=== PATIENT | male | born 1935 | race Caucasian/White ===

== ENCOUNTER 2016-08-23 12:39 | Day surgery (SDC) | payer MEDICARE ==
[~2016-08-23] VITALS: Ht 172.7 cm; Wt 85.0 kg
[~2016-08-23 12:39] MED LIST: 0.9% Sodium Chloride 1,000 ML IV PRN; ALLO300T2 PO; AMLO2.5T PO; LOVA40TA PO; Sodium Chloride LOK Flush 10 mL Syringe IV PRN; fentaNYL-PF 50 mCg/mL 2 mL Inj IVPUSH PRN
[2016-08-23 14:46] VITALS: BP 151/73; PULSE 51; RESP 14; O2SAT 98
--- NOTE | 2016-08-23 16:03 | PCM.ENDCOL ---
Colonoscopy Date of Service: Aug 23, 2016 Physician Clarke Starks MD Pre Procedure Diagnosis: History of polyp Post Procedure Dx & Findings: Polyp hemorrhoids Procedure Colonoscopy PROCEDURE IN DETAIL: Prep adequate After unremarkable rectal examination the Olympus video colonoscope was inserted patient's anal canal and was advanced to cecum. Landmarks were identified including the ileocecal valve and appendiceal orifice. Scope was withdrawn systematically. Visualized colonic mucosa showed healthy shiny mucosa with normal healthy-appearing vasculature. In the cecum, there was a 1 cm polyp which was removed completely using a hot snare. Visible vessel noted. One hemostatic clip deployed successfully. In te ascending colon, 1.5 cm polyp noted. This was removed completely using a hot snare. Also in the ascending colon there were two 1mm polyps which were all removed completely using cold forcep. In the transverse colon there were 3 mm polyp and 5 mm polyp. These were removed completely using cold snare. Also in the transverse colon, there were two 1mm polyps which were all removed completely using cold forceps. In the rectum retroflexion was done which showed hemorrhoids. Anal canal was inspected carefully on the way out and hemorrhoids noted. Impression Polyps 8 status post complete removal Hemorrhoids Recommendation Repeat colonoscopy 3 years Presedation Assessment Risks and Benefits Informed consent was obtained from the patient after all risks and benefits including but not limited to drug reaction, infection, pain, bleeding, perforation, as well as alternatives were discussed. Patient monitoring Continuous pulse oximetry, cardiac monitoring, blood pressure monitoring, IV access, and oxygen at 2L per nasal cannula. Periprocedural Fentanyl: Fentanyl 50mcg Incrementally Midazolam: Midazolam 2mg Incrementally Complications There were no periprocedural complications identified. Post Procedure Plan Post Procedure Recommendations 1. Restrict activities today. 2. Resume normal activities in the morning. 3. Resume medications. 4. Patient informed of normal post procedure side effects as bloating, drowsiness, blood streaking in the stool. 5. average risk CRCS. If colon polyps come back as: -Hyperplastic- can repeat colonoscopy in 10 years -Tubular adenoma- repeat colonoscopy in 5 years -Tubulovillous/villous adenoma- repeat colonoscopy in 3 years -If any dysplasia- return to clinic as soon as possible 6. Please don't hesitate to call me with any questions. Clarke Starks MD Aug 23, 2016 16:03 Clarke Starks MD Aug 23, 2016 16:03
[2016-08-23 16:07] VITALS: BP 156/69; PULSE 55; O2SAT 96
[2016-08-23 16:19] VITALS: BP 166/72; PULSE 52; RESP 16; O2SAT 96
--- NOTE | 2016-08-26 08:59 | PATH ---
SURGICAL PATHOLOGY Attending Physician:Clarke Starks M.D. CASE STATUS: Signed Out PATIENT NAME: LOURDES PLASCENCIA PID: [id number] : 1935 DATE COLLECTED:08/23/2016 00:00 SPECIMEN: 1: Colon, Biopsy 2: Colon, Biopsy 3: Colon, Biopsy CLINICAL HISTORY: 1). CECAL POLYP 2). ASCENDING COLON POLYPS 3). TRANSVERSE COLON POLYPS FINAL DIAGNOSIS: 1. Cecal Polyp: Tubular adenoma. 2. Ascending Colon Polyps: Tubular adenomas (3 fragments). Benign lymphoid nodule (1 fragment). 3. Transverse Colon Polyps: Tubular adenomas (2 fragments). ICD10 D12.6 GROSS DESCRIPTION: The specimen is received in three formalin filled containers labeled with the patient's name. 1). The specimen is sublabeled "cecal polyp" and consists of 2 portions of tissue which aggregate to 0.3 x 0.3 x 0.2 CM. The specimen is entirely submitted in cassette 1A. 2). The specimen is sublabeled "ascending colon polyp" and consists of 4 portions of tissue which aggregate to 0.4 x 0.4 x 0.3 CM. The specimen is entirely submitted in cassette 2A. 3). The specimen is sublabeled "transverse colon polyp" and consists of 2 portions of tissue which aggregate to 0.3 x 0.3 x 0.2 CM. The specimen is entirely submitted in cassette 3A. 08/24/2016 [facility] ICD-9 CODES: CPT CODES: 1: 44782 2: 84648 3: 78089 Electronically Signed Out Juan A Jerry MD [facility] [address], [place] [address] Technical component performed at [facility], [address], [place], [address]
== END 2016-08-23 23:59 | disposition home or self-care (01) ==
LOC: END 12:39
PROVIDERS: ATTEND Internal Medicine
DX: Z12.11 Encounter for screening for malignant neoplasm of colon (principal); D12.0 Benign neoplasm of cecum; D12.2 Benign neoplasm of ascending colon; D12.3 Benign neoplasm of transverse colon; Z86.010 Personal history of colon polyps; K64.8 Other hemorrhoids; K90.0 Celiac disease; M19.90 Unspecified osteoarthritis, unspecified site; M10.9 Gout, unspecified; I10 Essential (primary) hypertension; E78.5 Hyperlipidemia, unspecified; H35.30 Unspecified macular degeneration
CPT/HCPCS: 45385; 88305; 99153; G0500; J7030